=== PATIENT | male | born 1960 | race African-American/Black ===

== ENCOUNTER 2020-01-21 19:36 | Emergency (ER) | payer SELFPAY ==
[~2020-01-21] VITALS: Ht 175.3 cm; Wt 127.2 kg
--- NOTE | 2020-01-21 20:50 | RAD ---
Right knee 3 views. HISTORY: Swelling x1 week, pain 3 views were taken of the right knee. There is soft tissue swelling. There is no fracture or bony destructive process. There is no definite joint effusion. IMPRESSION: 1. Soft tissue swelling right leg. 2. No acute osseous abnormality. Electronically signed by: Alpesh Guerrero MD (01/21/2020 8:47 PM) [facility]
--- NOTE | 2020-01-21 21:03 | PHYS DOC ---
Past Medical History Past Medical History: Arthritis, COPD, Diabetes-Type II, GERD, High Tamara sterol, Hypertension, Kidney Stone, SC, Stroke, Other Additional Past Medical Histor: GOUT Past Surgical History: Other Additional Past Surgical Histo: R LEG AND ARM, HERNIA, Smoking Status: Former Smoker Alcohol Use: None General Adult EDM: Chief Complaint: LOWER EXTREMITY SWELLING HPI: HPI: Patient is a 59 year old male presents to the ED with chief complaint of right knee pain and swelling. Patient states that 1 week ago he was walking in his home slipped on stairs and fell. Patient states that progressively the right foot has gotten bigger than the left. Patient denies fever, chills, nausea, vomiting, chest pain, shortness of breath. Review of Systems: Review of Systems: Constitutional: Denies fever or chills. [] Eyes: Denies change in visual acuity. [] HENT: Denies nasal congestion or sore throat. [] Respiratory: Denies cough or shortness of breath. [] Cardiovascular: Denies chest pain or edema. [] Musculoskeletal: Swelling in the right knee and right lower extremity Heart Score: Risk Factors: Risk Factors: DM, Current or recent (<one month) smoker, HTN, HLP, family history of CAD, obesity. Risk Scores: Score 0 - 3: 2.5% MACE over next 6 weeks - Discharge Home Score 4 - 6: 20.3% MACE over next 6 weeks - Admit for Clinical Observation Score 7 - 10: 72.7% MACE over next 6 weeks - Early Invasive Strategies Allergies: Allergies: Allergies Coded Allergies Type Severity Reaction Last Updated Verified No Known Drug Allergies 01/21/20 No Physical Exam: PE: Constitutional: Well developed, well nourished, no acute distress, non-toxic appearance. [] HENT: Normocephalic, atraumatic Eyes: EOMI Neck: Normal range of motion, Respiratory: No respiratory distress Extremities: Swelling and tenderness in the right knee. Knee joint is stable. Swelling in the right foot Neurologic: Alert and oriented X 3 Current Patient Data: Vital Signs: Vital Signs Date Time Temp Pulse Resp B/P (MAP) Pulse Ox O2 Delivery O2 Flow Rate FiO2 01/21/20 20:39 99.1 98 16 157/79 (105) 98 Room Air 99.1 EKG: EKG: [] Radiology/Procedures: Radiology/Procedures: [] Impression: XRAY KNEE IMPRESSION: 1. Soft tissue swelling right leg. 2. No acute osseous abnormality. US RLE Impression: 1. There is no evidence of deep venous thrombosis from the right common femoral to the popliteal veins. Course & Med Decision Making: Course & Med Decision Making Pertinent Imaging studies reviewed. (See chart for details) Right knee x-ray does not show any acute fractures. Ultrasound of the right lower extremity does not show DVT. Patient is referred to Dr. Cope the orthopedic surgeon as an outpatient. Discussed results and plan of care with patient. Patient is instructed to follow up with PCP in one to 2 days. Appropriate discharge instructions given to patient to return to the ED or to seek immediate medical evaluation. Patient is instructed to return to the ED if symptoms worsen or if any concerns. Dragon Disclaimer: Dragon Disclaimer: This electronic medical record was generated, in whole or in part, using a voice recognition dictation system. Departure Departure Impression: Primary Impression: Knee contusion Additional Impression: Internal derangement of knee Disposition: 01 HOME, SELF-CARE Condition: STABLE Referrals: NO PCP (PCP) KWAME COPE II, MD PLEASE CALL FOR APPOINTMENT Patient Instructions: Knee Pain, Knee Sprain Additional Instructions: Discussed results and plan of care with patient. Patient is instructed to follow up with PCP in one to 2 days. Appropriate discharge instructions given to patient to return to the ED or to seek immediate medical evaluation. Patient is instructed to return to the ED if symptoms worsen or if any concerns. Justicifation of Admission Dx: Justifications for Admission: Justification of Admission Dx: ARTEM Jolly DO Jan 21, 2020 21:03
--- NOTE | 2020-01-21 22:43 | RAD ---
Right lower extremity venous doppler ultrasound History: Swelling Comparison: None Findings: Multiple grayscale, color, and duplex spectral analysis sonographic images were acquired of the right lower extremity veins to evaluate for the presence of DVT. There is normal phasicity. Normal compression, color-flow, and augmentation is demonstrated from the right common femoral to the popliteal veins. There is normal color flow of the proximal greater saphenous and profunda femoris veins. There is normal color flow of segments of the calf veins. There is edema of the soft tissues. Impression: 1. There is no evidence of deep venous thrombosis from the right common femoral to the popliteal veins. Electronically signed by: Twin Gramajo MD (01/21/2020 10:40 PM) [facility]
[2020-01-21 23:21] VITALS: BP 181/88
== END 2020-01-21 23:24 | disposition home or self-care (01) ==
LOC: ER 19:36
DX: S80.01XA Contusion of right knee, initial encounter (principal); J44.9 Chronic obstructive pulmonary disease, unspecified; E11.9 Type 2 diabetes mellitus without complications; K21.9 Gastro-esophageal reflux disease without esophagitis; I10 Essential (primary) hypertension; E78.00 Pure hypercholesterolemia, unspecified; I25.2 Old myocardial infarction; M10.9 Gout, unspecified; Z86.73 Personal history of transient ischemic attack (TIA), and cerebral infarction without residual deficits; Z87.891 Personal history of nicotine dependence; W10.8XXA Fall (on) (from) other stairs and steps, initial encounter; Y93.01 Activity, walking, marching and hiking; Y92.89 Other specified places as the place of occurrence of the external cause; Y99.8 Other external cause status
CPT/HCPCS: 73562; 93971; 99284